=== PATIENT | male | born 1935 | race Caucasian/White ===

== ENCOUNTER 2016-07-15 06:38 | Day surgery (SDC) | payer MEDICARE ==
[~2016-07-15] VITALS: Ht 172.7 cm; Wt 101.2 kg
[~2016-07-15 06:38] MED LIST: APIX5TAB PO; ATRV10T PO; DILT-17 PO; GABA600T2 PO; INSU100I13 SUBQ; MULT-1018 PO
[2016-07-15] MEDS ORDERED: Propofol 10,000 mCg/mL 20 mL Inj ONE (06:39)
[2016-07-15] MEDS: Lactated Ringer's 1,000 ML IV SCH ×3 (06:55→07:33)
[2016-07-15 06:56] VITALS: BP 134/75; PULSE 77; RESP 16; O2SAT 99
--- NOTE | 2016-07-15 07:22 | PCM.HPANE ---
Patient Data Surgeon Admitting Provider: Attending Provider:Joaquim Cowan DO Primary Care Physician:Roosevelt Chavez MD Other Provider:Nati Toscano Anesthesia Reason for Visit Right Carpal Tunnel Syndrome Ht/WT & BMI Height (Feet): 5 Height (Inches): 8 Weight (Kilograms): 101.242 Body Mass Index 33.00 Allergies Coded Allergies: No Known Allergies (Verified Allergy, Unknown, 07/14/16) Past Anesthesia History Anesthesia History: Denies:: Abnormal Airway, Anesthesia Reactions, Difficult Intubation, Fam Anesthesia Reaction, Fam Malignant Hypertherm, Malignant Hyperthermia Diabetes History Hx Diabetes?: Yes (06/11/16 HGB A1C 8.2) Type of Diabetes: Type II Glycemic Control: Insulin Dependent MRSA MRSA: No Medications Hypertension Medication: Yes (DILTIAZEM) Reported Medications Apixaban (Eliquis)5 Mg Tablet5 Mg PO BID 07/14/16 Diltiazem ER 120 Mg Cap.er.32u388 Mg PO DAILY Ref 0 07/14/16 Multivitamin (Multi Vitamin Daily)1 Each Tablet1 Each PO DAILY 30 Days Ref 0 07/14/16 Insulin Glargine (Lantus U100 Solostar Insulin Pen)100 Unit/1 Ml Insuln.pen65 Unit SUBQ QAM #1 PENINJ Ref 0 08/06/14 Gabapentin 600 Mg Ycrknm590 Mg PO HS 30 Days Ref 0 08/06/14 Atorvastatin (Lipitor)10 Mg Tab10 Mg PO DAILY 30 Days Ref 0 12/12/13 Discontinued Reported Medications Insulin Aspart (NovoLOG U-100 Pen)100 Unit/Ml Insuln.pen5 Units SQ BID AC 08/06/14 Ibuprofen 200 Mg Eghqbp905 Mg PO QID PRN For Pain Ref 0 08/06/14 Hydrocodone-Acetaminophen 10-325 mg 1 Tab Tablet1-2 Tab PO Q 4-6H PRN For Pain Ref 0 08/06/14 Glucosa Guzman 2Kcl/Chondroitin Guzman (Glucosamine & Chondroitin Cap)1 Each Capsule1 Each PO BID 08/06/14 Multivitamin (Daily Multiple Vitamin)1 Each Tablet1 Each PO DAILY 08/06/14 Aspirin (Aspir 81)81 Mg Tablet.dr81 Mg PO DAILY Ref 0 08/06/14 Ramipril (Altace)5 Mg Capsule5 Mg PO DAILY 08/06/14 Ranitidine 300 Mg Oshuzqw198 Mg PO BID PRN prn 30 Days Ref 0 12/12/13 Discontinued Scripts Cefdinir 300 Mg Qafmfpl052 Mg PO BID #20 CAPSULE Ref 0 Prov:Dave Loera MD 07/21/14 Tamsulosin (Flomax)0.4 Mg Capsule0.4 Mg PO DAILY #30 CAPSULE Ref 3 Prov:Dave Loera MD 07/21/14 History History of ENT Problems?: No HEENT History: Denies:: Abnormal Airway Difficult Intubation Hearing Problem Denture Type: None Teeth Condition: Within Normal Limits Hx of Heart Problems?: Yes Cardiovascular History: Positive for:: Chest Pain (SYNCOPE 2014 ) Hypertension (hyperlipidemia) Denies:: Heart Murmur (ECHO 01/2015 EF 60-65%) Irregular Heartbeat (HX OF SYNCOPE,DIZZINESS 2014 HOLTER MONITOR) Valvular Heart Disease Other History/Comments Hx a-fib per pt in past On eliquis for unclear reasons Hx of Respiratory Problem?: Yes Respiratory History: Positive for:: Use of C-PAP Machine (?BRENDA+ ?CPAP) Denies:: Tuberculosis Hx Neurologic Problems?: Yes Neurological History: Positive for:: Dizziness (SYNCOPE) Denies:: CVA Hx of GI Problems?: Yes Hx of Problems?: Yes Genitourinary History: Positive for:: Kidney Stones (HX OF PREV STONES S/P CYSTO,LT LITHOTRIPSY) Denies:: HX of Hemodialysis (HX OF ACUTE RENAL FAILURE R/T KIDNEY STONES/SEPSIS ) Other Pertinent History: ED Male Hx: Positive for:: Prostate Problems (BPH) Denies:: Scrotal Mass Testicular Surgery Skin History: Denies:: History Skin Disorders? 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) Musculoskeletal Trauma (S/P BILAT KNEE SCOPES) Osteoarthritis Denies:: Back Injury (C/OF LOWER BACK & SHOULDER PAIN) Hx of Psycho/Social Problems?: No Hx Surgeries?: Yes (BILAT KNEE SCOPES,BILAT TKA'S,EXTRACTION KIDNEY STONE,CYSTO /LT STENT PLACEM) Hx Any Other Health Problems?: Yes Other History: Positive for:: Hospitalization (LT KIDNEY STONE 07/19/14) Denies:: Endocrine Disease Thyroid Disease History Blood Transfusions: Denies:: Blood Transfusions Hx Diabetes: Yes (06/11/16 HGB A1C 8.2) Hx Alcohol Use: YesAlcoholic Drinks Per Day: 1/DAYHx Substance Use: No Smoking Status: Never Smoker Have You Smoked inLast 12 mo: No Stop/Bang S-Snoring: Do You Snore Loudly: No T-Tired: feel tired, fatigued: No O-Obsered: Observed not breath: No P-Blood Pressure: treated: Yes B- Body Mass Index > 35 kg/m2: No A- Age over 50: Yes N- Neck Large Circumference: Yes G- Gender Male: Yes BRENDA Total Score: 4 Risk Assessment Category Category 1A: Patient has history of documented sleep apnea, and HAS NOT received any narcotic, sedative or anesthesia administration during this stay. Category 1B: Patient has history of documented sleep apnea, and HAS received any narcotic , sedative or anesthesia administration during this stay Category 2: Patient has SUSPECTED Obstructive Sleep Apnea, and HAS received any narcotic , sedative or anesthesia administration during this stay. Category 3: Patient has SUSPECTED Obstructive Sleep Apnea and HAS NOT received narcotic, sedative or anesthesia administration during this stay. Category 4: Outpatient in Procedural Areas with known sleep apnea or who screen positive for High Risk via the STOP/BANG questionnaire. Exam Exam Vital Signs Vital Signs Date Time Temp Pulse Resp B/P Pulse Ox O2 Delivery O2 Flow Rate FiO2 07/15/16 06:56 36 77 16 134/75 99 Room Air General Appearance: Alert, Oriented X3 HEENT/AIRWAY: MP 3, Neck Movement (FROM) Lungs: Clear to Auscultation, Clear to Percussion Heart: Exam Unremarkable, Regular Rate/Rhythm Meds/Labs/Diagnostics Admission Meds Current Medications Lactated Ringer's (Lr) 1,000 ml @ 120 mls/hr Q8H20M IV Last administered on t 06:55; Start 07/15/16 at 05:00; Stop 07/15/16 at 13:19 Plan Impression Patient chart reviewed, patient interviewed and anesthestic plan with risks, benefits, and alternatives discussed, and informed consent obtained. ASA Physical Status: ASA3 Severe Disease Anesthetic Plan: Regional Block (Cherelle block) Bene/Risks/Altern/Consents: Yes HP Complete Prior to Induction: Yes Los Jacques MD Jul 15, 2016 07:22
[2016-07-15] MEDS ORDERED: HYDROcodone-APAP 5-325 mg Tablet PO PRN (07:30)
[2016-07-15] MEDS ORDERED: Lactated Ringer's 1,000 ML IV SCH (07:48)
[2016-07-15] MEDS ORDERED: Lactated Ringer's 500 ML IV PRN (07:48)
[2016-07-15] MEDS ORDERED: Ondansetron 2 mg/mL 2 mL Inj IVPUSH PRN (07:50)
[2016-07-15] MEDS ORDERED: fentaNYL-PF 50 mCg/mL 2 mL Inj IVPUSH PRN (07:50)
[2016-07-15] MEDS ORDERED: Labetalol 5 mg/mL 4 mL Inj IV PRN (07:50)
[2016-07-15] MEDS ORDERED: EPHEDrine Sulfate 50 mg/mL Inj IVPUSH PRN (07:50)
[2016-07-15] MEDS ORDERED: Phenylephrine 10,000 mCg/mL Inj IVPUSH PRN (07:50)
[2016-07-15] MEDS ORDERED: Atropine 0.4 mg/mL Inj IVPUSH PRN (07:50)
[2016-07-15] MEDS ORDERED: Lidocaine 1% 50 mL Inj INFILTRATE ONE (07:51)
[2016-07-15 08:02] VITALS: BP 138/73; PULSE 67; O2SAT 96
[2016-07-15 08:33] VITALS: BP 147/61; PULSE 63; RESP 16; O2SAT 95
[2016-07-15 08:47] VITALS: BP 124/72; PULSE 62; RESP 16; O2SAT 94
--- NOTE | 2016-07-15 08:51 | OP ---
[address] [address] OPERATIVE REPORT PATIENT: SILVIO HEATH : 1935 MR#: [id number] ADMIT: 07/15/2016 JOB ID: [id number] DATE OF SURGERY: 07/15/2016 SURGEON: Joaquim Cowan DO. PREOPERATIVE DIAGNOSIS(ES): Right carpal tunnel syndrome. POSTOPERATIVE DIAGNOSIS(ES): Right carpal tunnel syndrome. PROCEDURE: Right open carpal tunnel release. ANESTHESIA: Cherelle block. BRIEF HISTORY: The patient is a pleasant 80-year-old male with longstanding history of right hand pain and paresthesias. He was diagnosed with carpal tunnel syndrome and failed conservative treatment with nighttime bracing. Electrodiagnostic studies demonstrated findings of carpal tunnel syndrome. I gave the patient option to proceed with a right open carpal tunnel release. He understood the risks include, but are not limited to, neurovascular injury, tendon injury, infection, failure of fixation, stiffness, failure to resolve the patient's preoperative symptoms, all of which may require further intervention. The patient had all questions answered. Consent was signed and placed in the chart. PROCEDURE IN DETAIL: The patient was brought to the operative suite and placed supine on the operating table. Surgical time-out performed. Everyone in the room was in agreement. After appropriate anesthesia was obtained, the right arm was then prepped and draped in sterile fashion. Right upper extremity was then approached with a 2 cm longitudinal incision in line with the radial aspect of the ring finger and the ulnar aspect of the palmaris longus. The incision was kept distal to the wrist crease and proximal to Kyle's cardinal line. Subcutaneous tissues were dissected with bipolar electrocautery utilized to maintain hemostasis throughout the procedure. The palmar fascia was first identified and incised longitudinally followed by exposure of underlying transverse carpal ligament. Transverse carpal ligament was then released in its entirety to include the distal extent of the antebrachial fascia. Copious irrigation was then performed followed by closure of the skin with 5-0 nylon in simple interrupted fashion. The patient was then placed in a bulky soft dressing. ESTIMATED BLOOD LOSS: Less than 1 cc. COMPLICATIONS: None. DISPOSITION: The patient tolerated the procedure well. Anesthesia was reversed. The patient was transferred to PACU for recovery. POSTOPERATIVE PLAN: The patient will follow up in the office in 2 weeks. Remove the patient's sutures at that time and have him start working on range of motion and scar mobilization.
--- NOTE | 2016-07-15 09:58 | PCM.ANEP1 ---
Post Anesthesia PACU Phase 1 Assessment Vital Signs Vital Signs Date Time Temp Pulse Resp B/P Pulse Ox O2 Delivery O2 Flow Rate FiO2 07/15/16 08:47 62 16 124/72 94 Room Air 07/15/16 08:33 36.5 63 16 147/61 95 Room Air 07/15/16 08:02 36.1 67 138/73 96 Room Air 07/15/16 06:56 36 77 16 134/75 99 Room Air Anesthetic Administered: Other (Cherelle block) Level of Alertness: Awake, talking [place]'s with Equal Strength: Yes Pain: No Nausea or Vomiting: No CV Function & Hydration Stable: Yes Airway Device: Oxygen Delivery: Room Air Lungs: Clear to Auscultation, Clear to Percussion PACU Phase 2 Assessment Complications: No Follow up Care: No Patient Instructions Provided: N/A Comments See anesth record for PACU VS. PACU VSS Los Jacques MD Jul 15, 2016 09:58
== END 2016-07-15 23:59 | disposition home or self-care (01) ==
LOC: SAS 06:38
PROVIDERS: ATTEND Orthopaedic Surgery
DX: G56.01 Carpal tunnel syndrome, right upper limb (principal); I10 Essential (primary) hypertension; E78.5 Hyperlipidemia, unspecified; K21.9 Gastro-esophageal reflux disease without esophagitis; N40.0 Benign prostatic hyperplasia without lower urinary tract symptoms; N13.30 Unspecified hydronephrosis; M19.90 Unspecified osteoarthritis, unspecified site; Z87.442 Personal history of urinary calculi; Z86.010 Personal history of colon polyps; Z79.4 Long term (current) use of insulin; Z96.653 Presence of artificial knee joint, bilateral
CPT/HCPCS: 64721; J7120